=== PATIENT | female | born 1995 | race African-American/Black ===

== ENCOUNTER 2023-07-11 11:24 | Emergency (ER) | payer MEDICAID ==
[~2023-07-11] VITALS: Ht 167.6 cm; Wt 84.0 kg
[2023-07-11 11:42] VITALS: O2SAT 100
[2023-07-11 12:37] LABS: BASOPHILS % 0.9 % (0.0-2.0); EOSINOPHILS % 0.6 % (0.0-5.0); HEMATOCRIT. 40.3 % (36.0-48.0); HEMOGLOBIN. 12.9 g/dL (12.0-16.0); MEAN CORPUSCULAR HEMOGLOBIN 26.3 pg (28.0-32.0); MEAN CORPUSCULAR HGB CONC 32.1 g/dL (31.0-37.0); MEAN PLATELET VOLUME 8.6 fl (7.4-10.4); MONOCYTES % 10.2 % (2.0-8.0); NEUTROPHILS % 67.3 % (40.0-76.0); PLATELET 240 x1000/uL (130-400); RED BLOOD CELL COUNT 4.92 mill/uL (4.2-5.4); RED CELL DISTRIBUTION WIDTH 15.1 % (11.6-14.6); WHITE BLOOD COUNT 4.9 x1000/uL (4.5-11.0)
[2023-07-11 13:02] LABS: CHLORIDE 106 mEq/L (98-107); INDEX HEMOLYSI 1 (1-3); INDEX ICTERIC 1 (1-4); INDEX LIPEMIC 1 (1-3); POTASSIUM 3.9 mEq/L (3.5-5.1); SODIUM 135 mEq/L (136-145)
[2023-07-11 13:04] LABS: HCG SCREEN NEGATIVE
[2023-07-11 13:18] LABS: ALANINE AMINOTRANSFERASE 19 IU/L (13-61); ALBUMIN 3.9 g/dL (3.4-5.0); ASPARTATE AMINOTRANSFERASE 16 IU/L (15-37); BILIRUBIN TOTAL 0.2 mg/dL (0.1-1.0); CALCIUM 8.3 mg/dL (8.5-10.1); CARBON DIOXIDE 26 mEq/L (21-32); CREATININE 0.8 mg/dL (0.6-1.3); GLUCOSE 85 mg/dL (70-105); PHOSPHORUS 3.8 mg/dL (2.5-4.9); PROTEIN TOTAL 8.3 g/dL (6.0-8.3); T4 FREE 1.18 ng/dL (0.76-1.46); UREA NITROGEN BLOOD 10 mg/dL (7-21)
[2023-07-11 15:31] VITALS: BP 136/96; PULSE 69; RESP 20; TEMP 97.7
== END 2023-07-11 15:33 | disposition home or self-care (01) ==
LOC: ER 11:58
DX: R20.2 Paresthesia of skin (principal); I10 Essential (primary) hypertension
CPT/HCPCS: 36415; 80053; 82330; 83735; 84100; 84439; 84443; 84703; 85025; 99284

== ENCOUNTER 2023-09-06 13:28 | Emergency (ER) | payer MEDICAID ==
[~2023-09-06] VITALS: Ht 167.6 cm; Wt 77.0 kg
[2023-09-06 13:33] VITALS: BP 141/95; PULSE 79; RESP 17; O2SAT 99
[2023-09-06] MEDS ORDERED: ACETAMINOPHEN 325MG TABLET PO ONE (13:45)
[2023-09-06 15:14] VITALS: TEMP 99
== END 2023-09-06 15:44 | disposition home or self-care (01) ==
LOC: ER 13:28
DX: M79.602 Pain in left arm (principal)
CPT/HCPCS: 73070; 99283